=== PATIENT | female | born 1995 | race Two or more races ===

== ENCOUNTER 2019-12-23 17:39 | Emergency (ER) | payer OTHER ==
[~2019-12-23] VITALS: Ht 167.6 cm; Wt 90.7 kg
[2019-12-23 17:53] VITALS: BP 110/52
[2019-12-23] MEDS ORDERED: IBUPROFEN 800 MG TAB PO ONE (19:45)
== END 2019-12-23 20:32 | disposition home or self-care (01) ==
LOC: ER 17:39
DX: S63.502A Unspecified sprain of left wrist, initial encounter (principal); S60.512A Abrasion of left hand, initial encounter; V87.8XXA Person injured in other specified noncollision transport accidents involving motor vehicle (traffic), initial encounter; Y93.89 Activity, other specified; Y92.89 Other specified places as the place of occurrence of the external cause; Y99.8 Other external cause status
CPT/HCPCS: 29125; 73110; 73130

== ENCOUNTER 2022-02-18 11:53 | Emergency (ER) | payer OTHER ==
[~2022-02-18] VITALS: Ht 165.1 cm; Wt 90.7 kg
[2022-02-18] MEDS ORDERED: AMOX-277 PO (14:12)
[2022-02-18] MEDS ORDERED: ACET-1158 PO (14:12)
[2022-02-18 14:23] VITALS: BP 114/62
== END 2022-02-18 14:28 | disposition home or self-care (01) ==
LOC: ER 11:53
DX: J01.90 Acute sinusitis, unspecified (principal)

== ENCOUNTER 2024-01-21 19:40 | Emergency (ER) | payer OTHER ==
[~2024-01-21] VITALS: Ht 165.1 cm; Wt 202.0 kg
[~2024-01-21 19:40] MED LIST: ACET500T58 PO; AMOX875T4 PO
[2024-01-22 01:40] VITALS: BP 104/63; PULSE 77; RESP 20; TEMP 98; O2SAT 98
[2024-01-22] MEDS ORDERED: CEPH500C PO (02:03)
[2024-01-22] MEDS ORDERED: ACET500T58 PO (02:03)
== END 2024-01-22 02:08 | disposition home or self-care (01) ==
LOC: ER 19:40
DX: S61.411A Laceration without foreign body of right hand, initial encounter (principal); W26.8XXA Contact with other sharp object(s), not elsewhere classified, initial encounter; Y93.G3 Activity, cooking and baking; Y92.89 Other specified places as the place of occurrence of the external cause; Y99.8 Other external cause status
CPT/HCPCS: 12001